=== PATIENT | male | born 1980 | race Caucasian/White ===

== ENCOUNTER → 2020-07-22 | Outpatient (CLI) | payer OTHER ==
--- NOTE | 2020-07-23 09:07 | TST ---
[place] [address] T[employer]MI[facility] STRESS TEST Name: CATIE CANTRELL Room: [facility]#: [id number] Admission: 07/22/20 Attend Phys: Wendy Stewart Discharge: Date of : 82 Date of Service: 07/22/20 1615 Report #: [id number] THIS REPORT FOR: cc: Wendy Stewart,Sha Lafleur MD [facility] ~ DATE OF SERVICE: 07/22/2020 PROCEDURE: Standard Pietro protocol exercise stress test. INDICATION: Chest pain. CARDIAC RISK FACTORS: Tobacco use. The patient exercised for 10 minutes and 33 seconds on the standard Pietro protocol. The patient achieved 97% of the age-predicted maximum heart rate and an energy expenditure equivalent to 12.73 METs. The baseline 12-lead EKG shows sinus rhythm without significant ST segment or T-wave abnormality. EKGs obtained during and post-exercise show sinus rhythm and sinus tachycardia with no significant ST segment changes when compared to baseline. There were no stress-induced arrhythmias. The resting heart rate was 67 beats per minute with a resting blood pressure of 129/77 mmHg. At peak stress, the heart rate was 176 beats per minute with a peak blood pressure of 164/58 mmHg. Recovery heart rate was 99 beats per minute with a recovery blood pressure of 152/67 mmHg. The patient had no significant clinical symptoms with exercise. Exercise was discontinued due to mild fatigue and leg discomfort. IMPRESSION: 1. Clinical response, nonischemic. 2. EKG response, nonischemic. CONCLUSION: This standard Pietro protocol exercise stress test shows no clinical or EKG evidence of stress-induced ischemia. This is a low-risk study. <ELECTRONICALLY SIGNED> By: Sha Dang MD, FACC 07/23/20 0907 1615 [id number] Sha Dang MD, FACC /nt
== END ==
LOC: M.CRD 14:30
PROVIDERS: ATTEND Nurse Practitioner Family
DX: R07.9 Chest pain, unspecified (principal)

== ENCOUNTER 2021-05-26 10:34 | Emergency (ER) | payer OTHER ==
[~2021-05-26] VITALS: Ht 193 cm; Wt 108.9 kg
[2021-05-26 10:43] VITALS: BP 126/87
== END 2021-05-26 13:15 | disposition left against medical advice (07) ==
LOC: M.ERS 10:34
DX: U07.1 COVID-19 (principal); Z53.21 Procedure and treatment not carried out due to patient leaving prior to being seen by health care provider